=== PATIENT | male | born 1980 | race Caucasian/White ===

== ENCOUNTER → 2018-02-06 | Outpatient (CLI) | END | disposition home or self-care (01) ==

== ENCOUNTER → 2018-04-21 | Outpatient (CLI) | END | disposition home or self-care (01) ==

== ENCOUNTER 2018-11-19 19:31 | Emergency (ER) | payer BC ==
[~2018-11-19] VITALS: Ht 167.6 cm; Wt 58.0 kg
[~2018-11-19 19:31] MED LIST: ALPR0.5T PO; CYCL10TA7 PO; IBUP-1542 PO
[2018-11-19 19:33] VITALS: BP 131/79; PULSE 53; RESP 18; Ht 167.6 cm; Wt 58.0 kg
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
[2018-11-19] MEDS ORDERED: HYDR-4011 PO (19:52)
[2018-11-19] MEDS ORDERED: CEPH-443 PO (19:52)
[2018-11-19] MEDS ORDERED: IBUP-1542 PO (19:52)
[2018-11-19] MEDS ORDERED: BACITRACIN 0.9 GM OINT TOP ONE (20:30)
[2018-11-19] MEDS ORDERED: BACITRACIN 0.5%/ZINC 28.35 GM OINT TOP ONE (20:30)
== END 2018-11-19 20:34 | disposition home or self-care (01) ==
LOC: FTE 19:31
DX: S50.812A Abrasion of left forearm, initial encounter (principal); V18.4XXA Pedal cycle driver injured in noncollision transport accident in traffic accident, initial encounter
CPT/HCPCS: 99283